=== PATIENT | female | born 1945 | race Caucasian/White ===

== ENCOUNTER 2017-04-18 20:06 | Emergency (ER) | payer OTHER ==
[~2017-04-18] VITALS: Ht 165.1 cm; Wt 63.6 kg
[2017-04-18] MEDS ORDERED: IBUPROFEN 600MG TABLET PO ONE (22:30)
[2017-04-18] MEDS ORDERED: TRAMADOL 50MG TABLET PO ONE (22:30)
[2017-04-19 00:10] VITALS: BP 116/82
== END 2017-04-19 00:28 | disposition home or self-care (01) ==
LOC: ER 20:47
DX: S40.022A Contusion of left upper arm, initial encounter (principal); R07.9 Chest pain, unspecified; I10 Essential (primary) hypertension; E11.9 Type 2 diabetes mellitus without complications; V49.09XA Driver injured in collision with other motor vehicles in nontraffic accident, initial encounter; Y93.89 Activity, other specified; Y99.8 Other external cause status; Y92.410 Unspecified street and highway as the place of occurrence of the external cause
CPT/HCPCS: 71045; 93005; 99284; Z7610